=== PATIENT | female | born 1980 | race Caucasian/White ===

== ENCOUNTER → 2022-10-24 10:07 | Outpatient (CLI) | payer OTHER | END | disposition home or self-care (01) | LOC: LAB 10:07 | PROVIDERS: ATTEND Urology | DX: I11.0 Hypertensive heart disease with heart failure (principal); N21.0 Calculus in bladder ==

== ENCOUNTER 2022-11-02 08:04 | Day surgery (SDC) | payer OTHER ==
[~2022-11-02] VITALS: Ht 152.4 cm; Wt 66.2 kg
[~2022-11-02 08:04] MED LIST: COZAAR100 MG PO
== END 2022-11-02 17:55 | disposition home or self-care (01) ==
LOC: CIR.AMB 08:04
PROVIDERS: ATTEND Urology
DX: N20.1 Calculus of ureter (principal); Z20.822 Contact with and (suspected) exposure to COVID-19; I10 Essential (primary) hypertension

== ENCOUNTER 2022-11-10 09:43 | Outpatient (CLI) | payer OTHER | END 2022-11-10 09:50 | disposition home or self-care (01) | LOC: RAD 09:43 | PROVIDERS: ATTEND Urology | DX: N20.0 Calculus of kidney (principal) ==

== ENCOUNTER 2022-11-11 10:21 | Outpatient (CLI) | payer OTHER | END 2022-11-11 10:23 | disposition home or self-care (01) | LOC: LAB 10:21 | PROVIDERS: ATTEND Urology | DX: N39.0 Urinary tract infection, site not specified (principal) ==

== ENCOUNTER 2023-03-22 08:56 | Outpatient (CLI) | payer OTHER | END 2023-03-22 09:03 | disposition home or self-care (01) | LOC: SONOGRAMA 08:56 | PROVIDERS: ATTEND Urology | DX: N20.1 Calculus of ureter (principal) ==

== ENCOUNTER 2023-03-24 11:03 | Outpatient (CLI) | payer OTHER ==
[2023-03-24 13:05] LABS: NA URINE 24 HR 94.5 mmol/24h (40-220)
== END 2023-03-24 11:11 | disposition home or self-care (01) ==
LOC: LAB 11:03
PROVIDERS: ATTEND Urology
DX: N20.1 Calculus of ureter (principal)

== ENCOUNTER 2023-04-19 08:39 | Outpatient (CLI) | payer OTHER | END 2023-04-19 08:47 | disposition home or self-care (01) | LOC: RAD 08:39 | PROVIDERS: ATTEND Urology | DX: N20.0 Calculus of kidney (principal) ==